=== PATIENT | male | born 1995 | race Caucasian/White ===

== ENCOUNTER 2017-07-30 16:50 | Emergency (ER) | payer SELFPAY ==
[~2017-07-30] VITALS: Ht 180.3 cm; Wt 63.5 kg
[2017-07-30 17:05] VITALS: BP 132/71
[2017-07-30] MEDS ORDERED: MAG HYDROX/AL HYDROX/SIMETH 30 ML UDC ONE (17:27)
[2017-07-30] MEDS ORDERED: ONDANSETRON 4 MG TAB.RAPDIS ONE (17:28)
[2017-07-30] MEDS ORDERED: MAG HYDROX/AL HYDROX/SIMETH 30 ML UDC PO ONE (17:30)
[2017-07-30] MEDS ORDERED: ONDANSETRON 4 MG TAB.RAPDIS SL ONE (17:30)
== END 2017-07-30 17:43 | disposition home or self-care (01) ==
LOC: ER 16:56
DX: K29.20 Alcoholic gastritis without bleeding (principal); F17.200 Nicotine dependence, unspecified, uncomplicated; F10.10 Alcohol abuse, uncomplicated
CPT/HCPCS: 99283; A4606; Q0162; Z7610